=== PATIENT | female | born 1995 | race Caucasian/White ===

== ENCOUNTER 2022-07-22 09:57 | Outpatient (CLI) | payer OTHER, BC, SELFPAY ==
[2022-07-22 11:03] LABS: Strep Group A RT-PCR NOT DETECTED (Negative)
== END 2022-07-22 09:58 | disposition home or self-care (01) ==
PROVIDERS: PCP Physician Assistant; Visit Provider Physician Assistant
DX: J02.9 Acute pharyngitis, unspecified (principal)
CPT/HCPCS: 87070; 87651

== ENCOUNTER 2022-10-13 13:48 | Outpatient (CLI) | payer OTHER, BC, SELFPAY ==
[2022-10-13 15:20] LABS: Appearance Urine Cloudy (Clear); Bacteria Urine 4+ /hpf; Bilirubin Urine Negative (Negative); Blood Urine 2+ (Negative); Color Urine Yellow (Yellow); Glucose Urine UA Negative (Negative); Ketones Urine Trace mg/dL (Negative); Leukocyte Esterase Ur 2+ LEU/UL (NEGATIVE); Need Manual Microscopic Reviewed; Nitrate Urine Positive (Negative); Non Pathogenic Casts 0-2; Protein Urine 1+ mg/dL (Negative); RBC Urine 51-100 /hpf (0-2); Specific Grav Ur 1.028 (1.001-1.035); Squamous Epithelial Cell Urine Occasional /hpf (Few); WBC Urine >100 /hpf (0-3); pH Urine 5.5 (5.0-9.0)
[2022-10-13 15:22] LABS: Add Urine Microscopic? YES
== END 2022-10-13 13:49 | disposition home or self-care (01) ==
PROVIDERS: PCP Physician Assistant; Visit Provider Physician Assistant
DX: R30.0 Dysuria (principal)
CPT/HCPCS: 81001; 87077; 87086; 87186

== ENCOUNTER 2025-03-15 08:01 | Emergency (ER) | payer OTHER, BC, SELFPAY ==
[2025-03-15 08:05] VITALS: BP 131/82; PULSE 89; RESP 18; TEMP 36.6; O2SAT 100
--- OUTSIDE RECORDS SUMMARY | 2025-03-15 08:08 | XMS_ITS | Clinical Summary ---
Author Organization [facility] Address [address] [place] [address] Phone Care Team Providers Care Food Products Tester Name Role Phone Belem Aleman MD Primary Care Provider [phone] Allergies Active Allergy Reactions Criticality Noted Date Comments Lisinopril Other (See Comments) Low 06/11/2024 nausea Medications EPINEPHrine (EPIPEN) 0.3 mg/0.3 mL Auto-InjectorIn dications:Food allergy Inject 0.3 mL (0.3 mg) by intramuscular injection 1 time daily as needed for Anaphylaxis. 0.3 mL 025 Active Irbesartan (Avapro) 75 mg tabletIndicatio ns:Benign essential hypertension Take 1 Tablet (75 mg) by mouth daily at bedtime. 90 Tablet 025 Active Cholecalciferol , Vitamin D3, 50 mcg (2,000 unit) Capsule Take by mouth. A ctive metoprolol succinate (Toprol XL) 25 mg Extended Release 24 hour tabletIndicatio ns:Benign essential hypertension Take 1 Tablet (25 mg) by mouth daily. 30 Tablet 025 Active metoprolol succinate (TOPROL XL) 50 mg Extended Release 24 hour tablet Take 50 mg by mouth daily. 2024 Discontinued(R eorder) pantoprazole (PROTONIX) 20 mg Tablet, Delayed Release (E.C.) 2024 Discontinued meloxicam (MOBIC) 7.5 mg tabletIndicatio ns:Right knee pain, unspecified chronicity Take 1-2 Tablets (7.5-15 mg) by mouth daily. 60 Tablet 1 025 2024 Discontinued Irbesartan (Avapro) 75 mg tabletIndicatio ns:Benign essential hypertension Take 1 Tablet (75 mg) by mouth daily at bedtime. 90 Tablet 025 2024 Discontinued(R eorder) metoprolol succinate (TOPROL XL) 50 mg Extended Release 24 hour tablet Take 1 Tablet (50 mg) by mouth daily. 90 Tablet 025 2024 Discontinued Active Problems Problem Noted Date Diagnosed Date Pure hypercholesterolemia 03/13/2025 Vitamin D deficiency 07/12/2024 Patellofemoral syndrome of right knee 05/07/2024 FH: colon polyps 05/01/2024 Overview (05/01/2024): Mother- colon polyp ~ age 50 Ma Grandfather- colon cancer Benign essential hypertension 05/27/2017 Endometriosis of pelvic peritoneum 07/16/2014 Resolved Problems Problem Noted Date Diagnosed Date Resolved Date Mirena: 09/202011/04/2020 05/04/2023 History of 2019 novel siegel virus disease (COVID-19) - Apr 23 05/27/2020 05/04/2023 RLTCS, male needs circ, cHTN (Lab 200 BID-holding) 03/05/2020 10/07/2020 History of pre-eclampsia in prior , currently 03/05/2020 09/09/2020 Chronic hypertension in 02/04/2020 10/07/2020 Severe pre-eclampsia in third trimester 09/04/2019 10/11/2019 PLTCS 09/04/19 - Estiven Steff 09/04/2019 10/11/2019 Obesity in , antepartum 09/03/2019 10/11/2019 Obesity (BMI 30.0-34.9) 09/03/201901/16 Urinary tract infection in m other during first trimester of 04/23/2019 05/28/2019 Chronic hypertension with rabago perimposed preeclampsia 03/22/2019 10/11/2019 Nausea and vomiting during 03/22/2019 05/28/2019 Counseling for HPV (human pa pillomavirus) vaccination 06/26/2018 09/09/2020 Neoplasm of uterine cervix 08/25/2015 0 09/09/2020 Cervical high risk human pap illomavirus (HPV) DNA test positive 08/19/2015 05/01/2024 Atypical squamous cells of u ndetermined significance (ASCUS) on Papanicolaou smear of cervix 08/05/2015 05/01/2024 Dyspareunia 08/05/2015 05/04/2023 Female genital symptoms 07/16/201409/17 Special screening examinatio n for other specified chlamydial diseases 07/02/2014 05/04/2023 Abdominal pain 09/11/2013 05/04/2023 Cyst of ovary 09/11/2013 09/09/2020 Dysmenorrhea 07/30/2013 05/04/2023 Ill-defined intestinal infection 09/01/2011 05/04/2023 Screening for malignant neoplasm of cervix 01/12/2011 09/09/2020 Encounters Date Type Department Care Team Description 03/13/2025 9:00 AM SENIOR TRAINER Procedure visit [facility] [place] [address] [place] [phone] Issue of repeat prescription for medication (Primary Dx) 03/13/2025 8:30 AM SENIOR TRAINER Office Visit [facility] [place] [address] [place] [phone] Belem Aleman MD Benign essential hypertension (Primary Dx); Pure hypercholesterolemia ; Vitamin D deficiency; Flu vaccine refused; Screening for condition 03/13/2025 [facility] [place] [address] [place] [phone] Belem Aleman MD Benign essential hypertension 03/07/2025 Refill [facility] [place] [address] [place] [phone] Belem Aleman MD Benign essential hypertension 01/15/2025 External Device Data [facility] ABSTRACTION Provider, Abstract from Last 3 Months Immunizations Immunization Administration Dates Next Due (ADACEL/BOOSTRIX)(10 YR UP) TDAP VACCINE, 0.5ML, IM 06/17/2020,08/16/2019 INFLUENZA VACCINE QUADRIVALENT 6 MOS UP PF IM ,03/31/2020 INFLUENZA VACCINE TRIVALENT SPLIT VIRUS, (6 MOS UP), 0.5ML (PF), IM 05/01/2024 Family History Medical History Relation Name Comments Healthy Daughter estiven Diabetes Father Hypertension Father Colon Cancer Maternal Grandfather Heart Attack Maternal Grandfather Diabetes Maternal Grandmother Hypertension Maternal Grandmother Stroke Maternal Grandmother Healthy Mother Other Mother Healthy Sister Healthy Son rachael Relation Name Status Comments Daughter estiven Alive Father Alive Maternal Grandfather (Age 82) Maternal Grandmother (Age 80) Mother Alive colon polyp~age 50 Sister Alive Son rachael Alive Social History Tobacco Use Types Packs/Day Years Used Date Smoking Tobacco: Never Smokeless Tobacco: Never Tobacco Cessation:Counseling Given: Not Answered Alcohol Use Standard Drinks/Week Comments Yes 0 (1 standard drink = 0.6 oz pur e alcohol) 2x/month- wine or whiskey Comments No Sex and Gender Information Value Date Recorded Sex Assigned at Not on file Legal Sex Female 11:40 AM SENIOR TRAINER Gender Identity Not on file Sexual Orientation Not on file Last Filed Vital Signs Vital Sign Reading Time Taken Comments Blood Pressure 124/78 03/13/2025 8:31 AM SENIOR TRAINER Pulse 78 03/13/2025 8:31 AM SENIOR TRAINER Temperature 36.7 C (98 F) 03/13/2025 8:31 AM SENIOR TRAINER Respiratory Rate 16 03/13/2025 8:31 AM SENIOR TRAINER Oxygen Saturation 98% 03/13/2025 8:31 AM SENIOR TRAINER Inhaled Oxygen Concentration - - Weight 71.7 kg (158 lb) 03/13/2025 8:31 AM SENIOR TRAINER Height 162.6 cm (5' 4) 03/13/2025 8:31 AM SENIOR TRAINER Body Mass Index 27.12 03/13/2025 8:31 AM SENIOR TRAINER Plan of Treatment Upcoming Encounters Date Type Department Care Team (Late st Contact Info) Description 06/04/2025 8:20 AM SENIOR TRAINER Clinical Support [facility] [employer] [place] [address] [place] [address] 06/11/2025 8:30 AM SENIOR TRAINER Office Visit [facility] [employer] [place] [address] [address] Belem Aleman MD [address] [place] [address] Health Maintenance Due Date Last Done Comments HEPATITIS B VACCINES (1 of 3 - 19+ 3-dose series) 2012 HPV VACCINES (1 - 3-dose SCDM series) 2020 INFLUENZA VACCINE (#1) 2024 , 01/16/2021, 03/31/2020 DTAP/TDAP/TD VACCINES (3 - T d or Tdap) 06/17/2030 06/17/2020, 08/16/2019 Preventative Visit- Commercial Completed 05/01/2024 , 12/15/2022 Insurance BS BLUE ACCESS/TRUE BLUE PPO RX PRIME THERAPEUTICS Commercial [facility] OPEN ACCESS TRUE BLUE PPO EXCHANGE Advance Directives For more information, please contact: [phone] * Full Code (Latest Code Status on File) Date Activated Date Inactivated Comments 08/23/2020 1:56 PM 08/25/2020 5:24 PM * Full Code Date Activated Date Inactivated Comments 08/19/2020 10:00 PM 08/20/2020 3:14 AM * Full Code Date Activated Date Inactivated Comments 09/04/2019 6:42 AM 09/09/2019 1:29 PM Care Teams Food Products Tester Relationship Specialty Start Date End Date Belem Aleman MD [address] [place] [phone] PCP - General Internal Medicine 04/12/24
--- OUTSIDE RECORDS SUMMARY | 2025-03-15 08:08 | XMS_ITS | Encounter Summary ---
Author Organization [facility] Address [address] [place] [address] Care Team Providers Care Aerospace Assembler Name Role Phone Belem Aleman MD Primary Care Provider [phone] Reason for Visit * Reason Comments Med Refill Encounter Details Date Type Department Care Team (Late st Contact Info) Description 03/13/2025 Refill [facility] [place] [address] [place] [address] Belem Aleman MD [address] [place] [address] Benign essential hypertension Social History Tobacco Use Types Packs/Day Years Used Date Smoking Tobacco: Never Smokeless Tobacco: Never Alcohol Use Standard Drinks/Week Comments Yes 0 (1 standard drink = 0.6 oz pur e alcohol) 2x/month- wine or whiskey Comments No Sex and Gender Information Value Date Recorded Sex Assigned at Not on file Legal Sex Female 11:40 AM TAG METER OPERATOR Gender Identity Not on file Sexual Orientation Not on file documented as of this encounter Plan of Treatment Upcoming Encounters Date Type Department Care Team (Late Contact Info) Description 06/04/2025 8:20 AM TAG METER OPERATOR Clinical Support [facility] [place] [address] [place] [address] 06/11/2025 8:30 AM TAG METER OPERATOR Office Visit [facility] [place] [address] [place] [address] Belem Aleman MD [address] [place] [address] documented as of this encounter Visit Diagnoses Diagnosis Benign essential hypertension Essential hypertension, benign documented in this encounter Care Teams Aerospace Assembler Relationship Specialty Start Date End Date Belem Aleman MD [address] [place] [address] PCP - General Internal Medicine 04/12/24 documented as of this encounter
--- OUTSIDE RECORDS SUMMARY | 2025-03-15 08:08 | XMS_ITS | Clinical Summary ---
Author Organization [facility] Address [address] [place] [address] Care Team Providers Care Document Specialist Name Role Phone Daniel Mckoy PA-C Primary Care Provide r Source Comments [facility] [employer],non-owned Affiliates and Associated Physician Practices is amultiple site organization consisting of ambulatory clinics and hospital sitesin [place], [place], [place] and [place]. This disclosure is being madepursuant to the Care Everywhere program and may not contain all information available regarding this patient. Last updated 18.[facility] [employer] Allergies No known active allergies Medications * Be aware that medications may not be up to date on this document. Alwaysverify current medications with the patient. amLODIPine (Norvasc) 5 MG tablet 2 Active metoprolol succinate XL 24hr (Toprol XL) 50 MG tablet 2 Active oxyCODONE, immediate release, (Roxicodone) 5 MG tabletIndicatio ns:Postoperativ e state Take 1 (one) tablet by mouth every 6 hours as needed for Pain 12 tablet 3 Active docusate sodium (Colace) 100 MG capsule Take 1 (one) capsule by mouth 2 times daily as needed for Constipation (relief of difficult bowel movements) 30 capsule 3 Active ondansetron, disintegrating, (Zofran ODT) 4 MG tablet Take 1 (one) tablet by mouth every 6 hours as needed for Nausea/Vomiting Allow tablet to dissolve on the tongue 20 tablet 3 Active Social History Tobacco Use Types Packs/Day Years Used Date Smoking Tobacco: Never Smokeless Tobacco: Never Tobacco Cessation:Counseling Given: Not Answered Alcohol Use Standard Drinks/Week Comments Yes 0 (1 standard drink = 0.6 oz pur e alcohol) occ Comments No Sex and Gender Information Value Date Recorded Sex Assigned at Not on file Legal Sex Female 6:12 PM PSYCHOLOGICAL OPERATIONS Gender Identity Not on file Sexual Orientation Not on file Last Filed Vital Signs Vital Sign Reading Time Taken Comments Blood Pressure 126/80 08/11/2022 1:53 PM CDT Pulse 87 05/06/2022 2:49 PM PSYCHOLOGICAL OPERATIONS Temperature 36.8 C (98.2 F) 05/06/2022 1:55 PM PSYCHOLOGICAL OPERATIONS Respiratory Rate 18 05/06/2022 1:55 PM PSYCHOLOGICAL OPERATIONS Oxygen Saturation 97% 05/06/2022 2:49 PM PSYCHOLOGICAL OPERATIONS Inhaled Oxygen Concentration 76% 05/06/2022 1 :40 PM PSYCHOLOGICAL OPERATIONS Weight 76.2 kg (168 lb) 08/11/2022 1:53 PM CDT Height 162.6 cm (5' 4) 08/11/2022 1:53 PM CDT Body Mass Index 28.84 08/11/2022 1:53 PM CDT Plan of Treatment Health Maintenance Due Date Last Done Comments HIV SCREENING 2008 HEPATITIS C SCREENING 03/24/2011 DTAP/TDAP/TD VACCINES (1 - Tdap) 2012 HEPATITIS B VACCINE (1 of 3 - 19+ 3-dose series) 2012 HPV VACCINE (1 - 3-dose SCDM series) 2020 DEPRESSION SCREENING 04/18/2024 COVID-19 VACCINE (3 - 2024-2 6 season) 2024 10/07/2020, 09/16/2020 INFLUENZA VACCINE (#1) 2024 , 03/31/2020 ZOSTER VACCINE (1 of 2) 2043 HIB VACCINE Aged Out No longer eligi ble based on patient's age to complete this topic MENINGOCOCCAL (Group B) VACCINE SHARED DECISION-MAKING Aged Out No longer eligible based on patient's age to complete this topic MENINGOCOCCAL GROUPS A/C/Y/W VACCINE Aged Out No longer eligible b ased on patient's age to complete this topic PNEUMOCOCCAL VACCINE Aged Out No long er eligible based on patient's age to complete this topic Insurance ANTHEM CIGNA [facility] Address[facility] [id number] [place] [address] ANTHEM [facility] ANTHEM ANTHEM ANTHEM ANTHEM ANTHEM CIGNA Care Teams Document Specialist Relationship Specialty Start Date End Date Daniel Mckoy PA-C [address] [place], [place] [id number] PCP - General 08/11/22
--- NOTE | 2025-03-15 08:14 | ED.URI ---
HPI - URI/Sore Throat General Chief Complaint: Upper Respiratory Infection Stated Complaint: sore throat Time Seen by Provider: 03/15/25 08:15 Source: patient Mode of arrival: ambulatory Limitations: no limitations History of Present Illness HPI Narrative: 29-year-old female presents with complaint of sore throat, body aches for 2 days. Afebrile. Denies nausea vomiting. No known strep exposure. All systems reviewed and negative except as noted above. Related Data Home Medications ?Medication ?Instructions ?Recorded ?Confirmed ?Last Taken ?Type ibersartan 03/15/25 Unknown History metoprolol succinate 50 mg mg PO 03/15/25 Unknown History tablet,extended release 24 hr vit d 03/15/25 Unknown History Allergies Allergy/AdvReac Type Severity Reaction Status Date / Time amoxicillin Allergy Intermediate Vomiting Verified 03/15/25 08:28 [facility] Past Medical History Medical History (Updated 03/15/25 @ 08:25 by Conchita Lindo, PHYSICIST CRYOGENICS) Pyloric stenosis delivery delivered Hypertension Migraine Surgical History Surgical History (Updated 09/28/22 @ 11:21 by Daniel Mckoy, JANNY) History of total abdominal hysterectomy H/O laparoscopy Family History Family History Father Hypertension Grandparent Carcinoma of colon Diabetes mellitus Hypertension Heart disease Cerebrovascular accident Social History Social History Smoking status: Never smoker Comments At time of signature, agree with nursing past medical, surgical, social and family history. There is no relevant family history pertinent to the presenting complaint. Exam Narrative: GENERAL: This is a well-nourished, well-developed patient, in no apparent distress. HEAD: normocephalic, atraumatic. EYES: PERRL. Sclera clear/white. Vision is grossly intact. EARS: External ears normal, auditory canals clear and without drainage, TMs normal without perforation. Hearing grossly intact. NOSE: External nose normal with no obvious nasal discharge, nares without redness, no rhinorrhea. THROAT: Mucous membranes moist, Erythematous, tonsils 1+ bilaterally without exudates NECK: Neck supple, non-tender without lymphadenopathy, masses or thyromegaly. CARDIOVASCULAR: Regular rate and rhythm without murmurs, gallops, or rubs. RESPIRATORY: Clear to auscultation. Breath sounds equal bilaterally. No wheezes, rales, or rhonchi. SKIN: warm, Dry, intact with no suspicious lesions or rash, good texture and turgor. NEURO: awake, alert, and oriented to person, place and time. There were no obvious focal neurologic abnormalities. EXTREMITIES: No joint tenderness, effusion, or edema noted. Course Course Level of Care: Express Care Visit Vital Signs Vital signs: Vital Signs Temperature 36.6 C 03/15/25 08:05 Pulse Rate 89 03/15/25 08:05 Respiratory Rate 18 03/15/25 08:05 Blood Pressure 131/82 03/15/25 08:05 Pulse Oximetry 100 03/15/25 08:05 Oxygen Delivery Room Air 03/15/25 08:05 Temperature 36.6 C 03/15/25 08:05 Pulse Rate 89 03/15/25 08:05 Respiratory Rate 18 03/15/25 08:05 Blood Pressure 131/82 03/15/25 08:05 Pulse Oximetry 100 03/15/25 08:05 Oxygen Delivery Room Air 03/15/25 08:05 reviewed MDM - URI/Sore Throat MDM Narrative Medical decision making narrative: positive rapid strep. Patient is well-appearing, nontoxic. Will treat with azithromycin due to amoxicillin allergy. Differential Diagnosis Differential diagnosis: Likely upper respiratory infection, sinusitis, viral infection, influenza and pharyngitis Discharge Plan Discharge Clinical Impression: Strep throat Patient Disposition: Home Condition: Stable Instructions: Antibiotic Form, Strep Throat (ED) Additional Instructions: your strep test was positive today. Take antibiotic as prescribed until gone. Take ibuprofen or Tylenol every 6-8 hours as needed for pain and fever. Drink at least 64 oz of water a day. See your doctor if not improving. Patient Language: [place] Prescriptions: New azithromycin 250 mg tablet See Rx Instructions .ROUTE .COMPLEX Qty: 6 0RF Rx Instructions: For 250 mg dose pack: take 500 mg today (day 1), then 250 mg for 4 days (days 2-5) No Action metoprolol succinate 50 mg tablet extended release 24 hr PO ibersartan vit d Follow-up/Referrals: Ash,Belem Arroyo MD [Primary Care Provider, Unknown] Time of Disposition: 08:26
[2025-03-15 08:29] LABS: EDSTREPNEGPOS1 Positive (Negative)
== END 2025-03-15 08:31 | disposition home or self-care (01) ==
PROVIDERS: Emergency Provider Nurse Practitioner Family; PCP Internal Medicine
DX: J02.0 Streptococcal pharyngitis (principal); I10 Essential (primary) hypertension; Z79.899 Other long term (current) drug therapy
CPT/HCPCS: 87880; 99213; G0463